=== PATIENT | female | born 1965 | race Caucasian/White ===

== ENCOUNTER 2017-02-14 14:32 | Emergency (ER) | payer OTHER | END 2017-02-14 15:59 | disposition home or self-care (01) | LOC: ER1 14:32 | DX: K02.9 Dental caries, unspecified (principal); I10 Essential (primary) hypertension; F17.290 Nicotine dependence, other tobacco product, uncomplicated; Z88.2 Allergy status to sulfonamides | CPT/HCPCS: 99282 ==